=== PATIENT | female | born 1950 | race African-American/Black ===

== ENCOUNTER 2018-01-26 08:50 | Day surgery (SDC) | payer MEDICARE, OTHER ==
[~2018-01-26] VITALS: Ht 157.5 cm; Wt 64.0 kg
[~2018-01-26 08:50] MED LIST: ASPI-556 PO; ATOR80TA PO; ESOM40CA PO; FLUT10SP NS; HYDR-3110 PO; IRBE150T51 PO; ISOS30TA6 PO; METO25XL PO; MOME17N NASAL; SODIUM CHLORIDE 0.9% 1,000 ML IV ONE
[2018-01-26] MEDS ORDERED: PROPOFOL 1% 20 ML VIAL IVP ONE (08:51)
[2018-01-26] MEDS ORDERED: SIMV-261 PO (10:31)
[2018-01-26] MEDS ORDERED: NITR.4 SL (10:31)
[2018-01-26] MEDS ORDERED: DIPH2510L PO (10:31)
[2018-01-26] MEDS ORDERED: ATEN25TA PO (10:31)
[2018-01-26] MEDS ORDERED: OXYGEN THERAPY IH SCH (20:00)
== END 2018-01-26 12:40 | disposition home or self-care (01) ==
LOC: SURGERY 08:50
PROVIDERS: ATTEND Specialist
DX: K63.5 Polyp of colon (principal); K57.30 Diverticulosis of large intestine without perforation or abscess without bleeding; K21.9 Gastro-esophageal reflux disease without esophagitis; E78.00 Pure hypercholesterolemia, unspecified; I10 Essential (primary) hypertension; I25.2 Old myocardial infarction; M19.90 Unspecified osteoarthritis, unspecified site; Z86.73 Personal history of transient ischemic attack (TIA), and cerebral infarction without residual deficits; Z98.51 Tubal ligation status; Z86.74 Personal history of sudden cardiac arrest; Z91.013 Allergy to seafood; Z91.018 Allergy to other foods; Z88.0 Allergy status to penicillin; Z91.040 Latex allergy status; Z88.1 Allergy status to other antibiotic agents; Z79.82 Long term (current) use of aspirin; Z79.891 Long term (current) use of opiate analgesic; Z79.899 Other long term (current) drug therapy; Z98.890 Other specified postprocedural states; Z88.8 Allergy status to other drugs, medicaments and biological substances; Z82.0 Family history of epilepsy and other diseases of the nervous system; Z82.3 Family history of stroke; Z83.3 Family history of diabetes mellitus; Z82.61 Family history of arthritis; Z80.9 Family history of malignant neoplasm, unspecified; Z82.49 Family history of ischemic heart disease and other diseases of the circulatory system
CPT/HCPCS: 45380; 88305; C1769; J2704; J7030

== ENCOUNTER 2020-11-08 15:34 | Emergency (ER) | payer MEDICARE, OTHER ==
[~2020-11-08] VITALS: Ht 160 cm; Wt 69.1 kg
[~2020-11-08 15:34] MED LIST changes: -ASPI-556 PO; +ATEN-73 PO; -ATOR80TA PO; +DIPH2510L PO; -ESOM40CA PO; -FLUT10SP NS; -HYDR-3110 PO; -IRBE150T51 PO; -ISOS30TA6 PO; -METO25XL PO; -MOME17N NASAL; +NITR0.4T52 SL; +SIMV-261 PO; -SODIUM CHLORIDE 0.9% 1,000 ML IV ONE
[2020-11-08 15:48] VITALS: BP 151/96
== END 2020-11-08 17:43 | disposition left against medical advice (07) ==
LOC: EMS 15:38
DX: R07.9 Chest pain, unspecified (principal); Z53.21 Procedure and treatment not carried out due to patient leaving prior to being seen by health care provider
CPT/HCPCS: 93005